=== PATIENT | male | born 1990 | race Caucasian/White ===

== ENCOUNTER 2020-10-25 | Emergency (ER) | payer SELFPAY ==
--- NOTE | 2020-10-25 18:10 | EDPHYS ---
Physician Documentation [facility] Name: Zelalem Dior Age: 30 yrs Sex: Male : 1990 Arrival Date: 10/25/2020 Time: 16:59 Bed 24 Private MD: ED Physician Raul Rubio HPI: 10/25 19:44 This 30 yrs old Male presents to ER via Ambulatory with complaints of Rash, kb Skin Problem, Itching. 19:44 The patient's rash thought to be caused by an unknown cause. The rash is located on the kb right arm, left arm, right leg and left leg. The rash can be described as papular. Onset: The symptoms/episode began/occurred 2 day(s) ago. Associated signs and symptoms: Pertinent positives: itching. Severity of symptoms: At their worst the symptoms were mild moderate in the emergency department the symptoms are unchanged. The patient has not experienced similar symptoms in the past. The patient has not recently seen a physician. "I think I have scabies because I have this rash and it itches really bad. It's not spreading like poison marizol does so i don't think that is it." Pt reports he was taking down old board and carrying them across forearms so he isn't sure if something got him from that. . Historical: - Allergies: 17:14 No Known Allergies; ca1 - Home Meds: 17:14 None [Active]; ca1 - PMHx: 17:14 None; ca1 - PSHx: 17:14 Craniotomy; ca1 - Immunization history:: Adult Immunizations up to date, Flu vaccine is not up to date. - Social history:: Smoking status: Patient reports the use of cigarette tobacco products, smokes one-half pack cigarettes per day. ROS: 19:43 Constitutional: Negative for fever, chills, and weight loss, Cardiovascular: Negative kb for chest pain, palpitations, and edema, Respiratory: Negative for shortness of breath, cough, wheezing, and pleuritic chest pain, Abdomen/GI: Negative for abdominal pain, nausea, vomiting, diarrhea, and constipation, MS/Extremity: Negative for injury and deformity, Neuro: Negative for headache, weakness, numbness, tingling, and seizure. 19:43 Skin: Positive for rash, of the right arm, left arm, right leg and left leg. Exam: 19:43 Constitutional: This is a well developed, well nourished patient who is awake, alert, kb and in no acute distress. Head/Face: Normocephalic, atraumatic. MS/ Extremity: Pulses equal, no cyanosis. Neurovascular intact. Full, normal range of motion. Neuro: Awake and alert, GCS 15, oriented to person, place, time, and situation. Cranial nerves II-XII grossly intact. Motor strength 5/5 in all extremities. Sensory grossly intact. Cerebellar exam normal. Normal gait. 19:43 Respiratory: the patient does not display signs of respiratory distress, Respirations: normal. 19:43 Skin: rash a mild rash is noted, rash can be described as papular, on the right leg and left arm and right arm and left leg. Vital Signs: 17:10 BP 132 / 79; Pulse 78; Resp 18 S; Temp 97.4(TE); Pulse Ox 98% on R/A; Weight 117.93 kg ca1 (R); Height 5 ft. 10 in. (177.80 cm) (R); 18:00 BP 128 / 76; Pulse 81; Resp 15 S; Pulse Ox 98% on R/A; ca1 17:10 Body Mass Index 37.31 (117.93 kg, 177.80 cm) ca1 MDM: 17:52 Patient medically screened. kb 19:43 Data reviewed: vital signs, nurses notes. Data interpreted: Pulse oximetry: on room air kb is 98 %. Interpretation: normal. Counseling: I had a detailed discussion with the patient and/or guardian regarding: the historical points, exam findings, and any diagnostic results supporting the discharge/admit diagnosis, the need for outpatient follow up, a family practitioner, to return to the emergency department if symptoms worsen or persist or if there are any questions or concerns that arise at home. Administered Medications: No medications were administered Disposition: 10/26 07:11 Co-signature as Attending Physician, Raul Rubio MD I agree with the assessment and kdr plan of care. Disposition: 10/25/20 18:09 Discharged to Home. Impression: Rash and other nonspecific skin eruption. - Condition is Stable. - Discharge Instructions: Rash, [id number], Scabies, Adult. - Prescriptions for Elimite 5 % Topical Cream - apply 1 application by TOPICAL route one time Wash after 12 hours.; 60 gram. - Medication Reconciliation Form, Thank You Letter, Antibiotic Education, Prescription Opioid Use, Work release form form. - Follow up: Emergency Department; When: As needed; Reason: Worsening of condition. Follow up: Private Physician; When: 2 - 3 days; Reason: Recheck today's complaints, Continuance of care, Re-evaluation by your physician. Signatures: Phuong Dsouza, SAUMYA-C SENIOR BUSINESS DEVELOPMENT ANALYST-Raul Saleem MD MD [facility] Cecy Ingram RN RN ca1 Corrections: (The following items were deleted from the chart) 10/25 18:32 18:09 10/25/2020 18:09 Discharged to Home. Impression: Rash and other nonspecific skin ca1 eruption. Condition is Stable. Forms are Medication Reconciliation Form, Thank You Letter, Antibiotic Education, Prescription Opioid Use. Follow up: Emergency Department; When: As needed; Reason: Worsening of condition. Follow up: Private Physician; When: 2 - 3 days; Reason: Recheck today's complaints, Continuance of care, Re-evaluation by your physician. kb
--- NOTE | 2020-10-25 18:10 | ER ---
Nurse's Notes [facility] Name: Zelalem Dior Age: 30 yrs Sex: Male : 1990 Arrival Date: 10/25/2020 Time: 16:59 Bed 24 Private MD: Diagnosis: Rash and other nonspecific skin eruption Presentation: 10/25 17:10 Chief complaint: Patient states: Rashes and itching on upper and lower extremities x 2 ca1 days. A week ago, I was doing yard work with a lot of lorenzo and weeds. But the rashes just appeared 2 days ago. I did topical hydrocortisone, Calamine lotion, no relief. Coronavirus screen: Client denies travel out of the [place] in the last 14 days. At this time, the client does not indicate any symptoms associated with coronavirus-19. Ebola Screen: Patient negative for fever greater than or equal to 101.5 degrees Fahrenheit, and additional compatible Ebola Virus Disease symptoms Patient denies exposure to infectious person. Patient denies travel to an Ebola-affected area in the 21 days before illness onset. No symptoms or risks identified at this time. Initial Sepsis Screen: Does the patient meet any 2 criteria? No. Patient's initial sepsis screen is negative. Does the patient have a suspected source of infection? No. Patient's initial sepsis screen is negative. Risk Assessment: Do you want to hurt yourself or someone else? Patient reports no desire to harm self or others. Onset of symptoms was October 25, 2020. 17:10 Method Of Arrival: Ambulatory ca1 17:10 Acuity: KEV 5 ca1 Historical: - Allergies: 17:14 No Known Allergies; ca1 - Home Meds: 17:14 None [Active]; ca1 - PMHx: 17:14 None; ca1 - PSHx: 17:14 Craniotomy; ca1 - Immunization history:: Adult Immunizations up to date, Flu vaccine is not up to date. - Social history:: Smoking status: Patient reports the use of cigarette tobacco products, smokes one-half pack cigarettes per day. Screenin:52 Abuse screen: Denies threats or abuse. Denies injuries from another. Nutritional ca1 screening: No deficits noted. Tuberculosis screening: No symptoms or risk factors identified. Fall Risk None identified. Assessment: 17:52 General: Appears in no apparent distress. comfortable, Behavior is calm, cooperative, ca1 appropriate for age. Pain: Denies pain. Neuro: Level of Consciousness is awake, alert, obeys commands, Oriented to person, place, time, situation. Respiratory: Airway is patent Respiratory effort is even, unlabored, Breath sounds are clear bilaterally. Derm: Skin is healthy with good turgor, Skin is pink, warm \T\ dry. Rash noted that is raised, urticaria, on right arm, left arm, right leg and left leg. Musculoskeletal: Circulation, motion, and sensation intact. Capillary refill < 3 seconds. 18:30 Reassessment: Patient appears in no apparent distress at this time. Patient is alert, ca1 oriented x 3, equal unlabored respirations, skin warm/dry/pink. Vital Signs: 17:10 BP 132 / 79; Pulse 78; Resp 18 S; Temp 97.4(TE); Pulse Ox 98% on R/A; Weight 117.93 kg ca1 (R); Height 5 ft. 10 in. (177.80 cm) (R); 18:00 BP 128 / 76; Pulse 81; Resp 15 S; Pulse Ox 98% on R/A; ca1 17:10 Body Mass Index 37.31 (117.93 kg, 177.80 cm) ca1 ED Course: 16:59 Patient arrived in ED. ag5 17:13 Triage completed. ca1 17:14 Arm band placed on right wrist. ca1 17:49 Phuong Dsouza FNP-C [facility]. kb 17:49 Raul Rubio MD is Attending Physician. kb 17:52 Patient has correct armband on for positive identification. Bed in low position. Call ca1 light in reach. Side rails up X 1. 17:55 Ceyc Ingram, JUNIE is Primary Nurse. ca1 18:31 No provider procedures requiring assistance completed. Patient did not have IV access ca1 during this emergency room visit. Administered Medications: No medications were administered Outcome: 18:09 Discharge ordered by . kb 18:31 Discharged to home ambulatory. ca1 18:31 Condition: stable 18:31 Discharge instructions given to patient, Instructed on discharge instructions, follow up and referral plans. medication usage, Demonstrated understanding of instructions, follow-up care, medications, Prescriptions given X 1. 18:32 Patient left the ED. ca1 Signatures: Phuong Dsouza FNP-C FNP-Ckb Acob Cecy, RN RN ca1 Bridgette Pabon ag5 Corrections: (The following items were deleted from the chart) 18:31 18:30 BP 128 / 76; Pulse 81bpm; Resp 15bpm; Spontaneous; Pulse Ox 98% RA; ca1 ca1
== END 2020-10-25 18:32 | disposition home or self-care (01) ==
CPT/HCPCS: 99282

== ENCOUNTER 2023-05-26 12:47 | Emergency (ER) | payer BC, SELFPAY ==
--- OUTSIDE RECORDS SUMMARY | 2023-05-26 12:50 | XMS REPORT | Continuity of Care Document ---
:1990 Author Organization [facility] t Address [address] [facility]. [address] [place] [address] Care Team Providers Name Role Phone LEÓN MORALES Attending Clinician Unavailable Problems This patient has no known problems. Allergies, Adverse Reactions, Alerts Allergy Allergy Status Severity Reaction(s) Onset Inactive Treating Comm ents Source Name Type Date Date Clinician NO KNOWN Drug Active [facility] ALLERGIE Class [facility] Medications This patient has no known medications. Procedures This patient has no known procedures. Encounters Start End Encounter Admission Attending Care Care Encounter Source Date/Time Date/Time Type Type Clinicians Facility Department ID 2021-06-21 2021-06-21 Outpatient Drake MORALES [facility] [id number] [facility] 14:30:00 14:30:00 LEÓN [facility] Results This patient has no known results.
[2023-05-26] MEDS ORDERED: ONDANSETRON 4 MG/2 ML VIAL ONE (13:11)
[2023-05-26] MEDS ORDERED: NA CHLORIDE 0.9% 1,000 ML ONE (13:11)
[2023-05-26 13:34] LABS: Absolute Lymphocytes (CBC) 1.3 K/uL (0.7-4.9); Hematocrit 45.3 % (39.6-49.0); Lymphocytes % 12.8 % (15.3-44.8); MCV 85.5 fL (80-100); MPV 8.3 fL (7.6-11.3)
[2023-05-26 13:47] LABS: Specific Gravity > 1.030 (1.005-1.030); Urine Bacteria <20 /HPF (<20); Urine Bilirubin NEGATIVE (Negative); Urine Blood Negative (Negative); Urine Clarity Clear (Clear); Urine Color Yellow (Yellow); Urine Glucose NEGATIVE (Negative); Urine Mucus Slight /HPF (None Seen); Urine Protein 1+ (Negative); Urine RBC <5 /HPF (None Seen); Urine Urobilinogen Normal (Normal)
[2023-05-26 13:51] LABS: Albumin 4.4 g/dL (3.4-5.0); Bilirubin Total 0.5 mg/dL (0.2-1.0); Potassium 3.7 mEq/L (3.5-5.1); Protein, Total 7.8 g/dL (6.4-8.2)
--- NOTE | 2023-05-26 14:38 | EDPHYS ---
Physician Documentation [facility] Name: Zelalem Dior Age: 32 yrs Sex: Male : 1990 Arrival Date: 05/26/2023 Time: 12:47 Bed 18 Private MD: ED Physician Raul Rubio HPI: 05/26 13:55 This 32 yrs old Male presents to ER via Ambulatory with complaints of Heat Exposure. kdr 13:55 Patient states that he was at work today outside his usual when he suddenly became kdr lightheaded dizzy and nauseated. He had found his usual routine since awakening this morning. He denied any further precipitating issues. Working outside in this heat was not unusual and is still fairly early in the day. Patient states that he has been urinating more frequently recently and there is a history of diabetes in the family. He himself though was not diagnosed as diabetic at this time. Patient had no other concerns and appears to be more or less back to baseline without any evidence of acute illness requiring emergent intervention. Onset: The symptoms/episode began/occurred suddenly, just prior to arrival. Severity of symptoms: At their worst the symptoms were moderate severe incapacitating just prior to arrival, in the emergency department the symptoms have improved markedly. The patient has not experienced similar symptoms in the past. The patient has not recently seen a physician. Historical: - Allergies: 12:56 No Known Allergies; iw - Home Meds: 12:56 None [Active]; iw - PMHx: 12:56 None; iw - PSHx: 12:56 skull fracture; iw - Immunization history:: Adult Immunizations. - Social history:: Smoking status: Patient reports the use of cigarette tobacco products. ROS: 13:55 Constitutional: Negative for fever, chills, and weight loss, Eyes: Negative for injury, kdr pain, redness, and discharge, ENT: Negative for injury, pain, and discharge, Neck: Negative for injury, pain, and swelling, Cardiovascular: Negative for chest pain, palpitations, and edema, Respiratory: Negative for shortness of breath, cough, wheezing, and pleuritic chest pain, Back: Negative for injury and pain, : Negative for injury, bleeding, discharge, and swelling, MS/Extremity: Negative for injury and deformity, Skin: Negative for injury, rash, and discoloration, Psych: Negative for depression, anxiety, suicide ideation, homicidal ideation, and hallucinations, Allergy/Immunology: Negative for hives, rash, and allergies, Endocrine: Negative for neck swelling, polydipsia, polyuria, polyphagia, and marked weight changes, Hematologic/Lymphatic: Negative for swollen nodes, abnormal bleeding, and unusual bruising. 13:55 Abdomen/GI: Positive for nausea, abdominal cramps, Negative for constipation, abdominal cramps, abdominal distension, anorexia, dysphagia, hematemesis, black/tarry stool, rectal pain, rectal bleeding, bowel incontinence, flatulence. Exam: 13:55 Constitutional: This is a well developed, well nourished patient who is awake, alert, kdr and in no acute distress. Head/Face: Normocephalic, atraumatic. Eyes: Pupils equal round and reactive to light, extra-ocular motions intact. Lids and lashes normal. Conjunctiva and sclera are non-icteric and not injected. Cornea within normal limits. Periorbital areas with no swelling, redness, or edema. Neck: Trachea midline, no thyromegaly or masses palpated, and no cervical lymphadenopathy. Supple, full range of motion without nuchal rigidity, or vertebral point tenderness. No Meningismus. Chest/axilla: Normal chest wall appearance and motion. Nontender with no deformity. No lesions are appreciated. Cardiovascular: Regular rate and rhythm with a normal S1 and S2. No gallops, murmurs, or rubs. Normal PMI, no JVD. No pulse deficits. Respiratory: Lungs have equal breath sounds bilaterally, clear to auscultation and percussion. No rales, rhonchi or wheezes noted. No increased work of breathing, no retractions or nasal flaring. Abdomen/GI: Soft, non-tender, with normal bowel sounds. No distension or tympany. No guarding or rebound. No evidence of tenderness throughout. Back: No spinal tenderness. No costovertebral tenderness. Full range of motion. Skin: Warm, dry with normal turgor. Normal color with no rashes, no lesions, and no evidence of cellulitis. MS/ Extremity: Pulses equal, no cyanosis. Neurovascular intact. Full, normal range of motion. Neuro: Awake and alert, GCS 15, oriented to person, place, time, and situation. Cranial nerves II-XII grossly intact. Motor strength 5/5 in all extremities. Sensory grossly intact. Cerebellar exam normal. Normal gait. Psych: Awake, alert, with orientation to person, place and time. Behavior, mood, and affect are within normal limits. Vital Signs: 12:54 BP 133 / 76; Pulse 92; Resp 16; Temp 97.5; Pulse Ox 98% on R/A; Weight 117.93 kg; iw Height 5 ft. 10 in. ; Pain 5/10; 13:25 BP 109 / 72; Pulse 74; Resp 17; Temp 97.2; Pulse Ox 98% ; iw 12:54 Body Mass Index 37.31 (117.93 kg, 177.8 cm) iw 12:54 Pain Scale: Adult iw MDM: 14:37 Patient medically screened. kdr 14:51 Data reviewed: vital signs, nurses notes, lab test result(s). kdr 05/26 12:53 Order name: CMP; Complete Time: 14:35 kdr 05/26 12:53 Order name: CBC with Diff; Complete Time: 14:35 kdr 05/26 12:53 Order name: Urinalysis w/ reflexes; Complete Time: 14:35 kdr 05/26 12:53 Order name: CPK; Complete Time: 14:35 kdr 05/26 13:06 Order name: Troponin High Sensitivity; Complete Time: 14:35 kdr 05/26 13:06 Order name: EKG Strip; Complete Time: 13:36 kdr Administered Medications: 13:36 Drug: NS 0.9% IV 1000 ml Route: IV; Rate: 1 bolus; Site: left forearm; iw 14:30 Follow up: IV Status: Completed infusion iw 14:41 Follow up: Response: No adverse reaction os 13:36 Drug: Ondansetron IVP 4 mg Route: IVP; Site: left forearm; iw 14:41 Follow up: Response: No adverse reaction os Disposition Summary: 05/26/23 14:37 Discharge Ordered Location: Home kdr Problem: new kdr Symptoms: have improved kdr Condition: Stable kdr Diagnosis - Heat exhaustion, unspecified kdr - Weakness kdr Followup: kdr - With: Private Physician - When: 2 - 3 days - Reason: If symptoms return, Further diagnostic work-up, Recheck today's complaints, Continuance of care, Re-evaluation by your physician Discharge Instructions: - Discharge Summary Sheet kdr - Fatigue kdr - Heat Exhaustion kdr - Weakness, [id number] kdr - Preventing Heat Exhaustion, Adult kdr Forms: - Medication Reconciliation Form kdr - Thank You Letter kdr - [email or web address] kdr Signatures: Dispatcher [employer] Raul Castro MD MD kdr Linda Shelley RN RN iw Rafa Roper RN os Corrections: (The following items were deleted from the chart) 12:56 12:56 PSHx: None; iw iw
--- NOTE | 2023-05-26 14:38 | ER ---
Nurse's Notes [facility] Name: Zelalem Dior Age: 32 yrs Sex: Male : 1990 Arrival Date: 05/26/2023 Time: 12:47 Bed 18 Private MD: Diagnosis: Heat exhaustion, unspecified;Weakness Presentation: 05/26 12:54 Chief complaint: Patient states: around 10 am he was doing a dig for [employer], he started feeling his left arm go numb anf he got dizzy and had some mild chest pain, now he still feels dizzy and SOB. Coronavirus screen: At this time, the client does not indicate any symptoms associated with coronavirus-19. Ebola Screen: Patient negative for fever greater than or equal to 101.5 degrees Fahrenheit, and additional compatible Ebola Virus Disease symptoms Patient denies exposure to infectious person. Patient denies travel to an Ebola-affected area in the 21 days before illness onset. No symptoms or risks identified at this time. Initial Sepsis Screen: Does the patient meet any 2 criteria? No. Patient's initial sepsis screen is negative. Does the patient have a suspected source of infection? No. Patient's initial sepsis screen is negative. Risk Assessment: Do you want to hurt yourself or someone else? Patient reports no desire to harm self or others. Onset of symptoms was May 26, 2023. 12:54 Method Of Arrival: Ambulatory iw 12:54 Acuity: KEV 3 iw Triage Assessment: 15:13 General: Appears in no apparent distress. Behavior is calm, cooperative, appropriate os for age. Pain: Denies pain. Derm: No deficits noted. Historical: - Allergies: 12:56 No Known Allergies; iw - Home Meds: 12:56 None [Active]; iw - PMHx: 12:56 None; iw - PSHx: 12:56 skull fracture; iw - Immunization history:: Adult Immunizations. - Social history:: Smoking status: Patient reports the use of cigarette tobacco products. Screenin:12 [facility] ED Fall Risk Assessment (Adult) History of falling in the last 3 months, os including since admission No falls in past 3 months (0 pts) Confusion or Disorientation No (0 pts) Intoxicated or Sedated No (0 pts) Impaired Gait No (0 pts) Mobility Assist Device Used No (0 pt) Altered Elimination No (0 pt) Score/Fall Risk Level 0 - 2 = Low Risk. Abuse screen: Denies threats or abuse. Nutritional screening: No deficits noted. Tuberculosis screening: No symptoms or risk factors identified. Assessment: 13:00 General: Appears in no apparent distress. Behavior is calm, cooperative. Pain:. Pain: iw Complains of pain in head. Neuro: Level of Consciousness is awake, alert, obeys commands, Oriented to person, place, time, situation, Moves all extremities. Full function. Cardiovascular: Patient's skin is warm and dry. Respiratory: Respiratory effort is even, unlabored, Respiratory pattern is regular. Derm: Skin is intact, is healthy with good turgor. Musculoskeletal: Range of motion: intact in all extremities. Vital Signs: 12:54 BP 133 / 76; Pulse 92; Resp 16; Temp 97.5; Pulse Ox 98% on R/A; Weight 117.93 kg; iw Height 5 ft. 10 in. ; Pain 5/10; 13:25 BP 109 / 72; Pulse 74; Resp 17; Temp 97.2; Pulse Ox 98% ; iw 12:54 Body Mass Index 37.31 (117.93 kg, 177.8 cm) iw 12:54 Pain Scale: Adult iw ED Course: 12:49 Patient arrived in ED. mr 12:52 Raul Rubio MD is Attending Physician. kdr 12:56 Triage completed. iw 12:56 Arm band placed on. iw 13:23 Inserted saline lock: 20 gauge in left forearm, using aseptic technique. Blood iw collected. 13:23 CBC with Diff Sent. iw 13:23 CMP Sent. iw 13:23 CPK Sent. iw 13:23 Troponin High Sensitivity Sent. iw 13:34 Linda Shelley, RN is Primary Nurse. iw 15:10 Patient has correct armband on for positive identification. iw 15:13 No provider procedures requiring assistance completed. IV discontinued. os Administered Medications: 13:36 Drug: NS 0.9% IV 1000 ml Route: IV; Rate: 1 bolus; Site: left forearm; iw 14:30 Follow up: IV Status: Completed infusion iw 14:41 Follow up: Response: No adverse reaction os 13:36 Drug: Ondansetron IVP 4 mg Route: IVP; Site: left forearm; iw 14:41 Follow up: Response: No adverse reaction os Medication: 13:00 VIS not applicable for this client. iw Outcome: 14:37 Discharge ordered by . kdr 15:13 Discharged to home ambulatory. os 15:13 Condition: improved 15:13 Discharge instructions given to patient, family, Instructed on discharge instructions, follow up and referral plans. Drinking fluids and frequent cooling breaks while working outside. 15:14 Patient left the ED. os Signatures: Raul Rubio MD MD [facility] Garry Tita mr Linda Shelley RN RN iw Rafa Roper RN RN os Corrections: (The following items were deleted from the chart) 12:56 12:56 PSHx: None; iw iw
[2023-05-26 15:19] VITALS: O2SAT 98
[2023-05-26 15:21] VITALS: BP 109/72; TEMP 97.2
--- NOTE | 2023-05-28 12:36 | EKG ---
Test Date: 2023-05-26 Test Time: 13:32:02 Testing Manager: ARNOLD MEASUREMENT RESULTS: Intervals: Rate: 83 ME: 140 QRSD: 82 QT: 366 QTc: 430 [place]: P: 49 ME: 140 QRS: 75 T: 18 INTERPRETIVE STATEMENTS: Normal sinus rhythm Normal ECG No previous ECG available for comparison Electronically Signed On 05-28-23 12:33:33 CDT by Bandar Cote
== END 2023-05-26 15:14 | disposition home or self-care (01) ==
LOC: ER 12:47
DX: T67.5XXA Heat exhaustion, unspecified, initial encounter (principal); Z72.0 Tobacco use
CPT/HCPCS: 96361; 93005; 85025; 81001; 36415; 82550; 84484; 80053; 96374; 99284; J2405; J7030

== ENCOUNTER → 2023-12-22 | Emergency (ER) | payer BC, SELFPAY ==
[~2023-12-22] MED LIST: HYDROCODONE/APAP 10/325 TAB ONE; METOCLOPRAMIDE 5 MG TAB ONE; ONDANSETRON 4 MG (ODT) TAB ONE; TRAMADOL HCL 50 MG TAB ONE
--- OUTSIDE RECORDS SUMMARY | 2023-12-22 20:41 | XMS REPORT | Continuity of Care Document ---
Author Name Unknown Address [address] [facility] [place]. [address] thconnect Address [address] [facility]. [address] [place] [address] Care Team Providers Care Chopped Strand Operator Name Role Phone LEÓN MORALES Attending Clinician Unavailable Allergies, Adverse Reactions, Alerts Allergy Name Allergy Type Status Severity Reaction(s) Onset Date Inactive Date Treating Clinician Comments Source NO KNOWN ALLERGIE S Drug Class Active [facility] Encounters Start Date/Time End Date/Time Encounter Type Admission Type Attending Clinicians Care Facility Care Department Encounter ID Source 2021-06-21 14:30:00 2021-06-21 14:30:00 Outpatient R LEÓN MORALES [facility] [id number] [facility]
--- NOTE | 2023-12-22 23:17 | ER ---
Nurse's Notes [facility] Name: Zelalem Dior Age: 33 yrs Sex: Male : 1990 Arrival Date: 12/22/2023 Time: 20:37 Bed 11 Private MD: Diagnosis: Unspecified hemorrhoids;External Hemorrhoid Presentation: 12/22 20:54 Chief complaint: Patient states: Pt c/o swollen hemorrhoid with increased pain since tl4 12/16/23. No relief with OTC medications. Pt has not had bowel movement x 2 days. Coronavirus screen: Vaccine status: Patient reports being unvaccinated. At this time, the client does not indicate any symptoms associated with coronavirus-19. Ebola Screen: Patient negative for fever greater than or equal to 101.5 degrees Fahrenheit, and additional compatible Ebola Virus Disease symptoms Patient denies exposure to infectious person. Patient denies travel to an Ebola-affected area in the 21 days before illness onset. No symptoms or risks identified at this time. Initial Sepsis Screen: Does the patient meet any 2 criteria? No. Patient's initial sepsis screen is negative. Does the patient have a suspected source of infection? No. Patient's initial sepsis screen is negative. Risk Assessment: Do you want to hurt yourself or someone else? Patient reports no desire to harm self or others. Onset of symptoms was December 20, 2023. 20:54 Method Of Arrival: Ambulatory tl4 20:54 Acuity: KEV 3 tl4 Triage Assessment: 20:58 General: Appears uncomfortable, Behavior is calm, cooperative. Pain: Complains of pain tl4 in rectum. EENT: No deficits noted. No signs and/or symptoms were reported regarding the EENT system. Neuro: No deficits noted. Cardiovascular: No deficits noted. Respiratory: No deficits noted. GI: No deficits noted. No signs and/or symptoms were reported involving the gastrointestinal system. : No deficits noted. No signs and/or symptoms were reported regarding the genitourinary system. Derm: No deficits noted. No signs and/or symptoms reported regarding the dermatologic system. Historical: - Allergies: 20:57 No Known Allergies; tl4 - PMHx: 20:58 GERD; tl4 - PSHx: 20:57 skull fracture; tl4 - Immunization history:: Adult Immunizations unknown. - Social history:: Smoking status: Reported history of juuling and/or vaping. - Family history:: not pertinent. Screenin/30 00:30 [facility] ED Fall Risk Assessment (Adult) History of falling in the last 3 months, vc1 including since admission No falls in past 3 months (0 pts) Confusion or Disorientation No (0 pts) Intoxicated or Sedated No (0 pts) Impaired Gait No (0 pts) Mobility Assist Device Used No (0 pt) Altered Elimination No (0 pt) Score/Fall Risk Level 0 - 2 = Low Risk Oriented to surroundings, Maintained a safe environment, Educated pt \T\ family on fall prevention, incl call for assistance when getting out of bed. Abuse screen: Denies threats or abuse. Nutritional screening: No deficits noted. Tuberculosis screening: No symptoms or risk factors identified. Vital Signs: 12/22 20:54 BP 131 / 89; Pulse 72; Resp 18; Temp 98.2(O); Pulse Ox 97% on R/A; Weight 117.93 kg; tl4 Height 5 ft. 10 in. ; Pain 8/10; 12/23 00:31 BP 126 / 84; Pulse 70; Resp 18; Pulse Ox 98% ; vc1 12/22 20:54 Body Mass Index 37.31 (117.93 kg, 177.8 cm) tl4 12/22 20:54 Pain Scale: Adult tl4 ED Course: 12/22 20:43 Patient arrived in ED. gm2 20:43 Leighton Ruffin MD is Attending Physician. sp4 20:57 Triage completed. tl4 21:00 Arm band placed on right wrist. tl4 23:16 Santnaa Clayton MD is Referral Physician. sp4 12/23 00:31 No provider procedures requiring assistance completed. Patient did not have IV access vc1 during this emergency room visit. Administered Medications: 12/22 22:32 Not Given (not availablee): [id number] mg PO once vc1 22:32 Drug: traMADol PO 100 mg PO once Route: PO; vc1 22:32 Drug: MetoCLOPramide PO 10 mg PO once Route: PO; vc1 12/23 00:15 Drug: [place] PO 10 mg-325 mg 1 tabs PO once Route: PO; vc1 00:15 Drug: Ondansetron PO 4 mg PO once Route: PO; vc1 Medication: 00:31 VIS not applicable for this client. vc1 Outcome: 12/22 23:16 Discharge ordered by . sp4 12/23 00:31 Discharged to home ambulatory, vc1 Condition: good Discharge instructions given to patient, Instructed on discharge instructions, follow up and referral plans. medication usage, Demonstrated understanding of instructions, follow-up care, medications, Prescriptions given X 3, 00:33 Patient left the ED. vc1 Signatures: Margo Lorenzo RN RN vc1 Leighton Ruffin MD MD sp4 Josie Crook gm2 Ba King tl4 Corrections: (The following items were deleted from the chart) 12/22 20:58 20:57 PMHx: None; tl4 tl4 20:58 20:57 PMHx: GERD (skull fracture); tl4 tl4
--- NOTE | 2023-12-22 23:17 | EDPHYS ---
Physician Documentation [facility] Name: Zelalem Dior Age: 33 yrs Sex: Male : 1990 Arrival Date: 12/22/2023 Time: 20:37 Bed 11 Private MD: ED Physician Leighton Ruffin HPI: 12/22 20:43 This 33 yrs old Male presents to ER via Unassigned with complaints of sp4 Hemorrhoids. 12/23 03:01 33-year-old male presents with complaint of hemorrhoids for the past several years with sp4 a worsening in the last 2 days.. Patient states there is a swollen painful hemorrhoid around the anal area. . Historical: - Allergies: 12/22 20:57 No Known Allergies; tl4 - PMHx: 20:58 GERD; tl4 - PSHx: 20:57 skull fracture; tl4 - Immunization history:: Adult Immunizations unknown. - Social history:: Smoking status: Reported history of juuling and/or vaping. - Family history:: not pertinent. ROS: 12/23 03:01 Constitutional: Negative for fever, chills, and weight loss, Eyes: Negative for injury, sp4 pain, redness, and discharge, Abdomen/GI: Negative for abdominal pain, nausea, vomiting, diarrhea, and constipation, positive painful swollen hemorrhoid All other systems are negative, Exam: 03:01 Constitutional: This is a well developed, well nourished patient who is awake, alert, sp4 and in no acute distress. Head/Face: Normocephalic, atraumatic. Eyes: Pupils equal round and reactive to light, extra-ocular motions intact. Lids and lashes normal. Conjunctiva and sclera are not injected. Cornea within normal limits. Periorbital areas with no swelling, redness, or edema. ENT: Nares patent. No nasal discharge, no septal abnormalities noted. Tympanic membranes are normal and external auditory canals are clear. Oropharynx with no redness, swelling, or masses, exudates, or evidence of obstruction, uvula midline. Mucous membranes moist. Neck: Trachea midline, no thyromegaly or masses palpated, and no cervical lymphadenopathy. Supple, full range of motion without nuchal rigidity, or vertebral point tenderness. Chest/axilla: Normal chest wall appearance and motion. Nontender with no deformity. No lesions are appreciated. Cardiovascular: Regular rate and rhythm with a normal S1 and S2. No gallops, murmurs, or rubs. Normal PMI, no JVD. No pulse deficits. Respiratory: Lungs have equal breath sounds bilaterally, clear to auscultation and percussion. No rales, rhonchi or wheezes noted. No increased work of breathing, no retractions or nasal flaring. Abdomen/GI: Soft, non-tender, with normal bowel sounds. No distension or tympany. No guarding or rebound. No evidence of tenderness throughout. Rectal exam reveals moderate size swollen hemorrhoid, positive external hemorrhoid. No bleeding or fissure. Back: No spinal tenderness. No costovertebral tenderness. Skin: Warm, dry with normal turgor. Normal color with no rashes, no lesions, and no evidence of cellulitis. MS/ Extremity: Pulses equal, no cyanosis. Neurovascular intact. Full, normal range of motion. Neuro: Awake and alert, GCS 15, oriented to person, place, time, and situation. Cranial nerves II-XII grossly intact. Motor strength 5/5 in all extremities. Sensory grossly intact. Psych: Awake, alert, with orientation to person, place and time. Behavior, mood, and affect are within normal limits Vital Signs: 12/22 20:54 BP 131 / 89; Pulse 72; Resp 18; Temp 98.2(O); Pulse Ox 97% on R/A; Weight 117.93 kg; tl4 Height 5 ft. 10 in. ; Pain 8/10; 12/23 00:31 BP 126 / 84; Pulse 70; Resp 18; Pulse Ox 98% ; vc1 12/22 20:54 Body Mass Index 37.31 (117.93 kg, 177.8 cm) tl4 12/22 20:54 Pain Scale: Adult tl4 MDM: 12/22 20:45 Patient medically screened. sp4 12/23 03:01 Differential Diagnosis altered mental status, sepsis, flu, Hemorrhoid . Data reviewed: sp4 vital signs, nurses notes. ED course: Patient was prescribed symptomatic medication and referred to Dr. Clayton for evaluation for hemorrhoidectomy. Administered Medications: 12/22 22:32 Not Given (not availablee): [id number] mg PO once vc1 22:32 Drug: traMADol PO 100 mg PO once Route: PO; vc1 22:32 Drug: MetoCLOPramide PO 10 mg PO once Route: PO; vc1 12/23 00:15 Drug: [place] PO 10 mg-325 mg 1 tabs PO once Route: PO; vc1 00:15 Drug: Ondansetron PO 4 mg PO once Route: PO; vc1 Disposition Summary: 12/22/23 23:16 Discharge Ordered Problem: new sp4 Symptoms: have improved sp4 Condition: Stable sp4 Diagnosis - Unspecified hemorrhoids sp4 - External Hemorrhoid sp4 Followup: sp4 - With: Santana Clayton MD - When: 7 - 10 days - Reason: Recheck today's complaints Discharge Instructions: - Discharge Summary Sheet sp4 - Hemorrhoids, [id number] sp4 Forms: - Patient Portal Instructions sp4 Prescriptions: - Anusol-HC 25 mg Rectal suppository - insert 1 suppository RECTAL route every 12 hours for 14 days; 28 suppository; sp4 Refills: 0, Product Selection Permitted - naproxen 500 mg Oral tablet - take 1 tablet ORAL route every 12 hours; 30 tablet; Refills: 0, Product sp4 Selection Permitted - Tramadol 50 mg Oral tablet - take 1 tablet ORAL route every 8 hours as needed; 20 tablet; Refills: 0, sp4 Product Selection Permitted Signatures: Margo Lorenzo RN RN vc1 Leighton Ruffin MD MD sp4 LogBa dia tl4 Corrections: (The following items were deleted from the chart) 12/22 20:58 20:57 PMHx: None; tl4 tl4 20:58 20:57 PMHx: GERD (skull fracture); tl4 tl4
[2023-12-23 05:24] VITALS: BP 126/84; TEMP 98.2; O2SAT 98
== END ==
LOC: ER 20:37
DX: K64.4 Residual hemorrhoidal skin tags (principal)